=== PATIENT | female | born 1945 | race Caucasian/White ===

== ENCOUNTER 2017-05-23 17:35 | Emergency (ER) | payer OTHER ==
--- NOTE | 2017-05-23 17:46 | PDOC ---
History of Present Illness - General Chief Complaint: Pain, Acute Stated Complaint: ABDOMINAL PAIN Time Seen by Provider: 05/23/17 17:46 - History of Present Illness Initial Comments: 05/24/17 13:34 The patient is a 71 year old female with past medical history of hypothyroidism , hyperlipidemia, and diverticulitis who presents to the ED with complaints of left lower quadrant pain that began two days ago. She states that her pain is associated with diarrhea and relates the pain to her flare ups of diverticulitis in the past. She denies any melena or hematochezia. The patient does not experience a loss of appetite but states she is afraid to eat in case it aggravates the pain. She denies any nausea or vomiting. The patient reports seeing her PCP for her symptoms today in which she was instructed to go to the ER for a CTAP. She adds that she was recently being treated for a UTI with a round of antibiotics. The patient also adds that in the past her diverticulitis has caused her to be hospitalized. She denies any fevers, chills, cough, SOB, CP , or urinary symptoms. PCP: Arsalan Tran I spoke with Dr. Haile, who is a family friend, who reports the patient had some rebound pain and he was concerned about a possible perforation. Past History - Past Medical History Allergies/Adverse Reactions: Allergies Allergy/AdvReac Type Severity Reaction Status Date / Time codeine [Codeine] AdvReac GI UPSET Verified 05/23/17 17:37 hydrocodone [Hydrocodone] AdvReac GI UPSET Verified 05/23/17 17:37 morphine AdvReac GI UPSET Verified 05/23/17 17:37 oxycodone HCl [From Percocet] AdvReac GI UPSET Verified 05/23/17 17:37 Home Medications: Ambulatory Orders Levothyroxine [Synthroid -] 88 mcg PO DAILY #0 tablet 09/07/12 Lorazepam [Ativan] 2 mg PO HS PRN #0 tablet 09/07/12 Escitalopram Oxalate [Lexapro -] 10 mg PO DAILY 05/23/17 Lovastatin 40 mg PO DAILY 05/23/17 Anemia: No Asthma: No Cancer: No Cardiac Disorders: No CVA: No COPD: No CHF: No Dementia: No Diabetes: No GI Disorders: Yes (DIVERTICULOSIS) Disorders: No HTN: No Hypercholesterolemia: Yes Liver Disease: No Suicide Attempt (Hx): No Seizures: No Thyroid Disease: Yes (HYPOTHYROID) - Surgical History Abdominal Surgery: Yes (UPLIFT WITH SLING 1999) Appendectomy: No Cardiac Surgery: No Cholecystectomy: Yes Lung Surgery: No Neurologic Surgery: No Orthopedic Surgery: No - Psycho/Social/Smoking Cessation Hx Anxiety: No Suicidal Ideation: No Smoking Status: Yes Smoking History: Former smoker Have you smoked in the past 12 months: No Number of Cigarettes Smoked Daily: 0 If you are a former smoker, when did you quit?: 35 YRS AGO Hx Alcohol Use: Yes (RARELY) Drug/Substance Use Hx: No Substance Use Type: None Hx Substance Use Treatment: No Review of Systems - Review of Systems Comments:: 05/24/17 13:35 GENERAL/CONSTITUTIONAL: No fever or chills. No weakness. HEAD, EYES, EARS, NOSE AND THROAT: No change in vision. No ear pain or discharge. No sore throat. CARDIOVASCULAR: No chest pain or shortness of breath. RESPIRATORY: No cough, wheezing, or hemoptysis. GASTROINTESTINAL: Present: LLQ pain, diarrhea No nausea, vomiting, constipation. GENITOURINARY: No dysuria, frequency, or change in urination. MUSCULOSKELETAL: No joint or muscle swelling or pain. No neck or back pain. SKIN: No rash NEUROLOGIC: No headache, vertigo, loss of consciousness, or change in strength/ sensation. ENDOCRINE: No increased thirst. No abnormal weight change. HEMATOLOGIC/LYMPHATIC: No anemia, easy bleeding, or history of blood clots. ALLERGIC/IMMUNOLOGIC: No hives or skin allergy. *Physical Exam - Physical Exam Comments: 05/24/17 13:35 GENERAL: Awake, alert, and fully oriented, in no acute distress HEAD: No signs of trauma EYES: PERRLA, EOMI, sclera anicteric, conjunctiva clear ENT: Auricles normal inspection, hearing grossly normal, nares patent, oropharynx clear without exudates. Moist mucosa NECK: Normal ROM, supple, no lymphadenopathy, JVD, or masses LUNGS: Breath sounds equal, clear to auscultation bilaterally. No wheezes, and no crackles HEART: Regular rate and rhythm, normal S1 and S2, no murmurs, rubs or gallops ABDOMEN: Soft, LLQ tenderness to palpation with rebound pain, normoactive bowel sounds. No guarding. No masses EXTREMITIES: Normal range of motion, no edema. No clubbing or cyanosis. No cords , erythema, or tenderness NEUROLOGICAL: Normal speech, cranial nerves intact, negative pronator drift, 5/ 5 strength in all 4 extremities, normal sensation to light touch in all 4 extremities, normal cerebellar exam, normal gait, normal reflexes and tone SKIN: Warm, Dry, normal turgor, no rashes or lesions noted. ED Treatment Course - LABORATORY CBC & Chemistry Diagram: 05/23/17 18:00 05/23/17 18:00 Medical Decision Making - Medical Decision Making 05/23/17 18:45 71yo F hx multiple episodes of diverticulitis p/w 2 days of LLQ pain a/w diarrhea. Exam with LLQ pain with rebound. Differential includes compilicated diverticulitis with abscess or perforation vs uncomplicated diverticulitis vs colitis. -labs -CTAP -pain control (pt declines for now) -reassess Pt signed out to Dr. Bonilla for further evaluation and management. *DC/Admit/Observation/Transfer Diagnosis at time of Disposition: Acute colitis - Discharge Dispostion Disposition: HOME Condition at time of disposition: Stable - Referrals Referrals: Arsalan Tran MD [Primary Care Provider] - 1 week - Patient Instructions Printed Discharge Instructions: DI for Colitis, Smoking Cessation Additional Instructions: Light diet; advance diet slowly Tylenol as needed for headache/pain Return to ER if you have severe pain/bloody stool/vomiting/fever Follow-up with within the next 5 days - Attestations Physician Attestion: 05/24/17 13:44 I, Dr. Delfino Menard MD, attest that this document has been prepared under my direction and personally reviewed by me in its entirety. I further attest, that it accurately reflects all work, treatment, procedures and medical decision -making performed by me.
[2017-05-23 18:08] VITALS: TEMP 97.9; BMI 23.7
[2017-05-23 18:50] LABS: BASOPHIL 0.1 % (0-2.0); EOSINOPHIL 0.9 % (0-4.5); MCH 31.8 pg (25.7-33.7); MCHC 34.7 g/dl (32.0-36.0); MEAN CELL VOLUME 91.7 fl (80-96); MEAN PLT VOLUME 8.9 fl (7.5-11.1); NEUTROPHILS 80.1 % (42.8-82.8); PLATELET COUNT 237 K/MM3 (134-434); RDW 12.4 % (11.6-15.6); WHITE BLOOD COUNT 6.9 K/mm3 (4.0-10.8)
[2017-05-23 18:54] LABS: ALBUMIN 4.5 g/dl (3.5-5.0); ALK PHOS 77 U/L (32-92); ANION GAP 11 (8-16); BILIRUBIN,TOTAL 0.7 mg/dl (0.2-1.0); CALCIUM 9.2 mg/dl (8.4-10.2); CO2 24 mmol/L (22-28); CREATININE 0.7 mg/dl (0.6-1.3); GLUCOSE,RANDOM 103 mg/dl (74-106); MAGNESIUM 2.1 mg/dL (1.8-2.4); SGOT/AST 27 U/L (10-42); SGPT/ALT 33 U/L (10-40); TOT PROT 7.6 g/dl (6.4-8.3)
[2017-05-23 19:02] LABS: URINE APPEARANCE Clear; URINE BILIRUBIN Negative (NEGATIVE); URINE GLUCOSE (UA) Negative (NEGATIVE); URINE KETONE 1+ (NEGATIVE); URINE LEUK ESTERASE Negative (NEGATIVE); URINE NITRITE Negative (NEGATIVE); URINE PROTEIN Negative (NEGATIVE); URINE UROBILINOGEN 0.2 (0.2-1.0)
[2017-05-23 19:04] LABS: URINE BLOOD 1+ (NEGATIVE); URINE COLOR YELLOW
[2017-05-23 19:58] LABS: URINE BACTERIA FEW /hpf (NEGATIVE); URINE RBC 0-1 /hpf (0-3)
[2017-05-23] MEDS: METOPROLOL TARTRATE 5 MG/5 ML VIAL IVPUSH ONE ×2 (20:37→20:40)
[2017-05-23 20:40] VITALS: BP 145/77; PULSE 74
--- NOTE | 2017-05-23 20:49 | PDOC ---
*Physical Exam - Vital Signs Last Vital Signs Temp Pulse Resp BP Pulse Ox 97.9 F 71 16 115/62 96 05/23/17 17:36 05/23/17 20:27 05/23/17 20:27 05/23/17 20:27 05/23/17 20:27 <Bhargavi Vang - Last Filed: 05/23/17 20:52> - Vital Signs Last Vital Signs Temp Pulse Resp BP Pulse Ox 97.9 F 71 16 115/62 96 05/23/17 17:36 05/23/17 20:27 05/23/17 20:27 05/23/17 20:27 05/23/17 20:27 <Rachael Blas Megan - Last Filed: 05/24/17 06:52> ED Treatment Course - LABORATORY CBC & Chemistry Diagram: 05/23/17 18:00 05/23/17 18:00 - ADDITIONAL ORDERS Additional order review: Laboratory Results 05/23/17 05/23/17 18:10 18:00 Sodium 133 L Potassium 4.1 Chloride 98 Carbon Dioxide 24 Anion Gap 11 BUN 15 Creatinine 0.7 Creat Clearance w eGFR > 60 Random Glucose 103 Calcium 9.2 Magnesium 2.1 Total Bilirubin 0.7 AST 27 ALT 33 Alkaline Phosphatase 77 Total Protein 7.6 Albumin 4.5 Urine Color Yellow Urine Appearance Clear Urine pH 5.0 Ur Specific [place] 1.025 Urine Protein Negative Urine Glucose (UA) Negative Urine Ketones 1+ H Urine Blood 1+ H Urine Nitrite Negative Urine Bilirubin Negative Urine Urobilinogen 0.2 Ur Leukocyte Esterase Negative Urine RBC 0-1 Urine WBC 2-5 Ur Epithelial Cells Few Urine Bacteria Few 05/23/17 18:00 RBC 4.20 MCV 91.7 MCHC 34.7 RDW 12.4 MPV 8.9 Neutrophils % 80.1 Lymphocytes % 13.5 Monocytes % 5.4 Eosinophils % 0.9 Basophils % 0.1 - RADIOLOGY Radiograph Interpretation: 05/23/17 20:50 CT of abdomen and pelvis with contrast as reviewed by Dr. Francisco reports interval development of diffuse colonic wall thickening is noted including the rectum, consistent with acute colitis. There is also possible involvement of the ileum. There has been almost complete interval resolution of pericolonic edema in association with acute sigmoid diverticulitis identified on prior study. - Medications Given in the ED: ED Medications Discontinued Medications Generic Name Dose Route Start Last Admin Trade Name Karan PRN Reason Stop Dose Admin Metoprolol Tartrate 5 mg 05/23/17 20:32 05/23/17 20:40 Lopressor Injection - IVPUSH 05/23/17 20:33 Not Given ONCE ONE <Bhargavi Vang - Last Filed: 05/23/17 20:52> - LABORATORY CBC & Chemistry Diagram: 05/23/17 18:00 05/23/17 18:00 - ADDITIONAL ORDERS Additional order review: Laboratory Results 05/23/17 05/23/17 18:10 18:00 Sodium 133 L Potassium 4.1 Chloride 98 Carbon Dioxide 24 Anion Gap 11 BUN 15 Creatinine 0.7 Creat Clearance w eGFR > 60 Random Glucose 103 Calcium 9.2 Magnesium 2.1 Total Bilirubin 0.7 AST 27 ALT 33 Alkaline Phosphatase 77 Total Protein 7.6 Albumin 4.5 Urine Color Yellow Urine Appearance Clear Urine pH 5.0 Ur Specific [place] 1.025 Urine Protein Negative Urine Glucose (UA) Negative Urine Ketones 1+ H Urine Blood 1+ H Urine Nitrite Negative Urine Bilirubin Negative Urine Urobilinogen 0.2 Ur Leukocyte Esterase Negative Urine RBC 0-1 Urine WBC 2-5 Ur Epithelial Cells Few Urine Bacteria Few 05/23/17 18:00 RBC 4.20 MCV 91.7 MCHC 34.7 RDW 12.4 MPV 8.9 Neutrophils % 80.1 Lymphocytes % 13.5 Monocytes % 5.4 Eosinophils % 0.9 Basophils % 0.1 - Medications Given in the ED: ED Medications Discontinued Medications Generic Name Dose Route Start Last Admin Trade Name Karan PRN Reason Stop Dose Admin Metoprolol Tartrate 5 mg 05/23/17 20:32 05/23/17 20:40 Lopressor Injection - IVPUSH 05/23/17 20:33 Not Given ONCE ONE <Rachael Blas - Last Filed: 05/24/17 06:52> Medical Decision Making - Medical Decision Making Results discussed with patient and her family Clinical presentation most consistent with acute colitis either inflammatory or infectious Dr. Tran was contacted and results discussed with him. Unlikely that this is antibiotic related since there was a rather long delay between administration of antibiotics for UTI and onset of symptoms. Patient will be discharged with instructions to continue fluids and progress to light diet cautiously. She should take Tylenol as needed for any pain. She should contact Dr. Tran for follow-up in the near future. She return to the emergency room if she has worsening pain/blood in stool/vomiting/high fever <Rachael Blas - Last Filed: 05/24/17 06:52> *DC/Admit/Observation/Transfer - Attestations Scribe Attestion: 05/23/17 20:52 Documetation prepared by Bhargavi Vang, acting as medical staffing coordinator for Rachael Blas MD. <Bhargavi Vang - Last Filed: 05/23/17 20:52> <Rachael Blas - Last Filed: 05/24/17 06:52> Diagnosis at time of Disposition: Acute colitis - Discharge Dispostion Disposition: HOME Condition at time of disposition: Stable - Referrals Referrals: Arsalan Tran MD [Primary Care Provider] - 1 week - Patient Instructions Printed Discharge Instructions: Smoking Cessation, DI for Colitis Additional Instructions: Light diet; advance diet slowly Tylenol as needed for headache/pain Return to ER if you have severe pain/bloody stool/vomiting/fever Follow-up with within the next 5 days - Post Discharge Activity
== END 2017-05-23 20:53 | disposition home or self-care (01) ==
LOC: FER 17:35 → SUPCPDRO 17:35 → FER 20:53
DX: K52.9 Noninfective gastroenteritis and colitis, unspecified (principal); E03.9 Hypothyroidism, unspecified; E78.5 Hyperlipidemia, unspecified; Z87.891 Personal history of nicotine dependence
CPT/HCPCS: 36415; 74177-TC; 80053; 81003; 81015; 83735; 85025; 87086; 99282-25